=== PATIENT | female | born 1945 | race Caucasian/White ===

== ENCOUNTER 2017-04-12 18:01 | Observation (INO) | payer OTHER ==
[~2017-04-12] VITALS: Ht 157.5 cm; Wt 76.9 kg
[2017-04-12 18:26] LABS: BASO % 0.2 %; BASO ABS # 0.02 K/uL (0-0.2); COMPLETE YES; HEMATOCRIT 43.9 % (37-47); IG% 0.3 %; LYMPH % 7.7 %; LYMPH ABS # 0.89 K/uL (1.2-3.4); MEAN CELL VOLUME 96.7 fL (80-100); MEAN CORPUSCULAR HEMOGLOBIN 31.3 pg (25-34); MEAN CORPUSCULAR HGB CONC 32.3 g/dl (32-36); MEAN PLATELET VOLUME 9.5 fL (7.4-10.4); MONO % 4.2 %; NEUT % 86.6 %; PLATELET COUNT 247 K/uL (130-400); RED BLOOD COUNT 4.54 M/uL (4.2-5.4); WHITE BLOOD COUNT 11.55 K/uL (4.8-10.8)
[2017-04-12 18:40] LABS: PARTIAL THROMBOPLASTIN RATIO 1.2; PROTHROMBIN TIME (PATIENT) 10.6 SECONDS (9.0-12.0)
[2017-04-12 18:47] LABS: ALKALINE PHOSPHATASE 84 U/L (45-117); ALT/SGPT 22 U/L (12-78); AST/SGOT 17 U/L (15-37); BLOOD UREA NITROGEN 14 mg/dl (7-18); BUN/CREATININE RATIO 13.7 (10-20); CALCIUM 8.8 mg/dl (8.5-10.1); CARBON DIOXIDE 27 mmol/L (21-32); CHLORIDE 104 mmol/L (98-107); CKMB/CK RATIO 1.3 (0-3.0); CREATININE 0.99 mg/dl (0.60-1.20); GLUCOSE 157 mg/dl (70-99); MAGNESIUM 2.1 mg/dl (1.8-2.4); POTASSIUM 3.3 mmol/L (3.5-5.1); SODIUM 137 mmol/L (136-145)
--- NOTE | 2017-04-12 18:47 | DIAGNOSTIC IMAGING REPORT ---
SINGLE VIEW CHEST CLINICAL HISTORY: Weakness. Change in mental status. FINDINGS: An AP, portable, upright chest radiograph is obtained. No prior studies are available for comparison at the time of dictation. The examination is degraded by portable technique and apical lordotic positioning. The cardiomediastinal silhouette is unremarkable. There is atherosclerotic calcification of the thoracic aorta. Small calcified granulomas are incidentally noted. The lungs and pleural spaces are otherwise clear. No pneumothorax is seen. The skeletal structures are osteopenic. The bony thorax is grossly intact. IMPRESSION: No active disease in the chest. Electronically signed by: Armani Loya M.D. 04/12/2017 6:46 PM Dictated Date/Time: 04/12/2017 6:45 PM
--- NOTE | 2017-04-12 18:56 | DIAGNOSTIC IMAGING REPORT ---
CT SCAN OF THE BRAIN WITHOUT IV CONTRAST CLINICAL HISTORY: Weakness. Change in mental status. COMPARISON STUDY: MRI of the brain dated 02/15/2016. TECHNIQUE: Unenhanced axial CT scan of the brain is performed from the vertex to the skull base. CT DOSE: 700.35 mGycm FINDINGS: Brain parenchyma: There are age-related involutional changes noting mild patchy subcortical and periventricular microangiopathic change. A 2.9 cm calcified extra-axial mass in the right anterior temporal fossa is unchanged from previous and typical appearance for a meningioma. There is no significant associated mass effect. There is no hemorrhage, midline shift, or evidence of acute territorial ischemia by CT criteria. Durand-white matter is preserved. No extra-axial fluid collection is seen. Ventricles, sulci, cisterns: Prominent secondary to involutional change. Intracranial vasculature: There is atherosclerotic calcification of the cavernous carotid arteries. Calvarium: Unremarkable. Sinuses and mastoids: The visualized paranasal sinuses are clear. The mastoid air cells are well pneumatized. Orbits: The bony orbits are grossly intact. IMPRESSION: 1. There is no hemorrhage, mass effect, or evidence of acute territorial ischemia by CT criteria. 2. A calcified extra-axial mass in the right anterior temporal fossa is typical in appearance for a meningioma and unchanged from prior studies. Electronically signed by: Armani Loya M.D. 04/12/2017 6:54 PM Dictated Date/Time: 04/12/2017 6:51 PM
[2017-04-12] MEDS ORDERED: ASPIRIN 81 MG CHEW PO STA (18:58)
--- NOTE | 2017-04-12 19:23 | EMERGENCY ROOM VISIT NOTE ---
History Report prepared by Scribrigo: Coleman Jimenez Under the Supervision of: Dr. Kendell Allen D.O. First contact with patient: 18:06 Stated Complaint: RT LEG PAIN/WEAKNESS History of Present Illness The patient is a 71 year old female who presents to the Emergency Room by EMS with complaints of improving right leg weakness beginning two hours ago. The patient states that she previously had right arm weakness as well, but it has since resolved. She states that she was standing outside while gardening when her weakness began. She states that her weakness began suddenly and caused her to fall. The patient states that she eventually was able to get to a phone to call EMS after falling a few more times. She does not believe she injured herself or hit her head on any of the falls. The patient denies any headaches, loss of bowel or bladder continence, visual changes, back pain, or leg pain. She has a history of ambulatory problems related to spinal stenosis and sciatica. She has no history of stroke or heart attack. Source of History: patient Onset: Two hours ago Position: leg (right) Quality: other (weakness) Timing: other (improving) Associated Symptoms: + weakness (resolved right arm), No headache, No back pain Note: The patient denies any loss of bowel or bladder continence, leg pain or visual changes. Review of Systems See HPI for pertinent positives & negatives. A total of 10 systems reviewed and were otherwise negative. Past Medical & Surgical Medical Problems: (1) HTN (hypertension) (2) Sciatica (3) Spinal stenosis Family History No pertinent family history stated. Social History Smoking Status: Current Every Day Smoker Occupation Status: retired Allergies Coded Allergies: Penicillins (Verified Adverse Reaction, Mild, GI SYMPTOMS, 04/09/14) Physical Exam Vital Signs Date Time Temp Pulse Resp B/P (MAP) Pulse Ox O2 Delivery O2 Flow Rate FiO2 04/12/17 19:13 88 04/12/17 19:10 92 162/82 96 Room Air 04/12/17 18:14 34.2 100 176/76 96 Room Air Physical Exam VITAL SIGNS: were reviewed as above. GENERAL:Non-toxic in appearance. SKIN: Warm dry and pink. HEAD: Normocephalic and atraumatic. OROPHARYNX: Is clear and moist NECK: Supple without lymphadenopathy or meningismus. LUNGS: clear. HEART: Regular rate and rhythm. ABDOMEN: Soft and nontender. EXTREMITIES: Warm and well perfused. NEUROLOGICALLY: Awake alert and oriented without focal deficit. Cranial nerves 2 -12 are intact. There is no pronator drift. Cerebellar testing is within normal limits. There is no nystagmus. There is no facial droop. Speech is clear. Vision is grossly normal. MUSCULOSKELETAL: Good muscle tone. No evidence of trauma. Medical Decision & Procedures ER Provider Diagnostic Interpretation: Radiology results as stated below per my review and radiologist interpretation: CT SCAN OF THE BRAIN WITHOUT IV CONTRAST FINDINGS: Brain parenchyma: There are age-related involutional changes noting mild patchy subcortical and periventricular microangiopathic change. A 2.9 cm calcified extra-axial mass in the right anterior temporal fossa is unchanged from previous and typical appearance for a meningioma. There is no significant associated mass effect. There is no hemorrhage, midline shift, or evidence of acute territorial ischemia by CT criteria. Durand-white matter is preserved. No extra-axial fluid collection is seen. Ventricles, sulci, cisterns: Prominent secondary to involutional change. Intracranial vasculature: There is atherosclerotic calcification of the cavernous carotid arteries. Calvarium: Unremarkable. Sinuses and mastoids: The visualized paranasal sinuses are clear. The mastoid air cells are well pneumatized. Orbits: The bony orbits are grossly intact. IMPRESSION: 1. There is no hemorrhage, mass effect, or evidence of acute territorial ischemia by CT criteria. 2. A calcified extra-axial mass in the right anterior temporal fossa is typical in appearance for a meningioma and unchanged from prior studies. Electronically signed by: Armani Loya M.D. 04/12/2017 6:54 PM SINGLE VIEW CHEST FINDINGS: An AP, portable, upright chest radiograph is obtained. No prior studies are available for comparison at the time of dictation. The examination is degraded by portable technique and apical lordotic positioning. The cardiomediastinal silhouette is unremarkable. There is atherosclerotic calcification of the thoracic aorta. Small calcified granulomas are incidentally noted. The lungs and pleural spaces are otherwise clear. No pneumothorax is seen. The skeletal structures are osteopenic. The bony thorax is grossly intact. IMPRESSION: No active disease in the chest. Electronically signed by: Armani oLya M.D. 04/12/2017 6:46 PM Laboratory Results 04/12/17 18:00 Red Blood Count 4.54, Mean Corpuscular Volume 96.7, Mean Corpuscular Hemoglobin 31.3, Mean Corpuscular Hemoglobin Concent 32.3, Mean Platelet Volume 9.5, Neutrophils (%) (Auto) 86.6, Lymphocytes (%) (Auto) 7.7, Monocytes (%) (Auto) 4.2, Eosinophils (%) (Auto) 1.0, Basophils (%) (Auto) 0.2, Neutrophils # (Auto) 10.02, Lymphocytes # (Auto) 0.89, Monocytes # (Auto) 0.48, Eosinophils # (Auto) 0.11, Basophils # (Auto) 0.02 04/12/17 18:00 Test 04/12/17 18:00 White Blood Count 11.55 K/uL (4.8-10.8) Red Blood Count 4.54 M/uL (4.2-5.4) Hemoglobin 14.2 g/dL (12.0-16.0) Hematocrit 43.9 % (37-47) Mean Corpuscular Volume 96.7 fL (80-100) Mean Corpuscular Hemoglobin 31.3 pg (25-34) Mean Corpuscular Hemoglobin Concent 32.3 g/dl (32-36) Platelet Count 247 K/uL (130-400) Mean Platelet Volume 9.5 fL (7.4-10.4) Neutrophils (%) (Auto) 86.6 % Lymphocytes (%) (Auto) 7.7 % Monocytes (%) (Auto) 4.2 % Eosinophils (%) (Auto) 1.0 % Basophils (%) (Auto) 0.2 % Neutrophils # (Auto) 10.02 K/uL (1.4-6.5) Lymphocytes # (Auto) 0.89 K/uL (1.2-3.4) Monocytes # (Auto) 0.48 K/uL (0.11-0.59) Eosinophils # (Auto) 0.11 K/uL (0-0.5) Basophils # (Auto) 0.02 K/uL (0-0.2) RDW Standard Deviation 49.9 fL (36.4-46.3) RDW Coefficient of Variation 14.0 % (11.5-14.5) Immature Granulocyte % (Auto) 0.3 % Immature Granulocyte # (Auto) 0.03 K/uL (0.00-0.02) Prothrombin Time 10.6 SECONDS (9.0-12.0) Prothromb Time International Ratio 1.0 (0.9-1.1) Activated Partial Thromboplast Time 31.6 SECONDS (21.0-31.0) Partial Thromboplastin Ratio 1.2 Anion Gap 6.0 mmol/L (3-11) Est Creatinine Clear Calc Drug Dose 61.6 ml/min Estimated GFR () 66.9 Estimated GFR (Non- 57.7 BUN/Creatinine Ratio 13.7 (10-20) Calcium Level 8.8 mg/dl (8.5-10.1) Magnesium Level 2.1 mg/dl (1.8-2.4) Total Bilirubin 0.4 mg/dl (0.2-1) Direct Bilirubin mg/dl (0-0.2) Aspartate Amino Transf (AST/SGOT) 17 U/L (15-37) Alanine Aminotransferase (ALT/SGPT) 22 U/L (12-78) Alkaline Phosphatase 84 U/L (45-117) Total Creatine Kinase 78 U/L (26-192) Creatine Kinase MB 1.0 ng/ml (0.5-3.6) Creatine Kinase MB Ratio 1.3 (0-3.0) Troponin I < 0.015 ng/ml (0-0.045) Total Protein 7.6 gm/dl (6.4-8.2) Albumin 3.8 gm/dl (3.4-5.0) Lipase 131 U/L (73-393) Thyroid Stimulating Hormone (TSH) 2.940 uIu/ml (0.300-4.500) Chemistry Specimen Hemolysis Laboratory results as stated above per my review. Medications Administered Medications (Trade) Dose Ordered Sig/Koby Route Start Time Stop Time Status Last Admin Dose Admin Aspirin (Aspirin Chew) 324 mg NOW STAT PO 04/12/17 18:58 04/12/17 18:59 DC 04/12/17 19:10 324 MG ECG Indication: weakness Rate (beats per minute): 88 Rhythm: normal sinus Findings: no acute ischemic change, no ectopy ED Course 1809: Previous medical records were reviewed. The patient was evaluated in room C10. A complete history and physical examination was performed. 1857: Ordered Aspirin Chew 324 mg PO. 1919: On reevaluation, the patient is resting comfortably. I discussed the results and findings with her. She verbalized agreement of the treatment plan. I spoke with Dr. Briceno of the [facility] Hospitalist Service. The patient will be evaluated for further management and care. Medical Decision Differential includes acute coronary syndrome, myocardial infarction, CVA, TIA, anemia, infection, pneumonia, UTI, pyelonephritis, poor nutrition, dehydration, electrolyte disturbance, hypoglycemia. This is a 71-year-old female who presents to the ED with a chief complaint of right leg and right arm weakness. The patients symptoms started suddenly around 4 PM. She states that she was outside gardening. The patient subsequently lost strength in the leg and the right arm simultaneously. She has some difficulty getting back to the house. Her symptoms slowly improved. By the time EMS arrived, her right arm was functioning normally but her right leg was still weak. She denies any other significant symptoms. Denies any trauma. She does report having fallen a few times but denies falling hard or striking her head. She denies any back or neck pain. She denies any bowel or bladder dysfunction. Her vital signs are stable. Her physical exam did not reveal any focal deficits. She has no pronator drift. Right leg appears to be symmetric to the left with regards to strength. She does report that she feels like she might fall when she bears weight. A CT scan of the brain and chest x- ray did not show any acute disease. CBC and complete metabolic panel were unremarkable. EKG shows a normal sinus rhythm. The patient was treated with aspirin by mouth. I spoke with the hospitalist, who will see the patient for further inpatient evaluation. Medication Reconcilliation Current Medication List: was personally reviewed by me Blood Pressure Screening Patient's blood pressure: Elevated blood pressure Blood pressure disposition: Referred to PCP Consults Time Called: 1912 Consulting Physician: Dr. Briceno -[facility] Returned Call: [phone] Discussed the patient's case. The patient will be evaluated for further treatment and disposition. Impression Primary Impression: TIA (transient ischemic attack) Scribe Attestation The scribe's documentation has been prepared under my direction and personally reviewed by me in its entirety. I confirm that the note above accurately reflects all work, treatment, procedures, and medical decision making performed by me. Departure Information Dispostion Being Evaluated By Hospitalist Referrals Edelmira Sim D.O. (PCP) Stroke History Time Last Known Well 4pm Stroke t-PA Criteria Reviewed Does NOT meet criteria for t-PA Reason t-PA Not Given Treatment not indicated Strict Exclusion Criteria Complete resolution of symptoms (NI
[2017-04-12] MEDS ORDERED: ZINC25TA PO (19:28)
[2017-04-12] MEDS ORDERED: CHOL100010 PO (19:28)
[2017-04-12] MEDS ORDERED: MULT-506 PO (19:28)
[2017-04-12] MEDS ORDERED: GLUC1CAP35 PO (19:28)
[2017-04-12] MEDS ORDERED: TURM500T PO (19:28)
[2017-04-12] MEDS ORDERED: LUTE6CAP PO (19:28)
[2017-04-12] MEDS ORDERED: ACETAMINOPHEN 325 MG TAB PO PRN (19:45)
[2017-04-12] MEDS ORDERED: MAGNESIUM HYDROXIDE SUSP 30 ML UDC PO PRN (19:45)
[2017-04-12] MEDS ORDERED: ONDANSETRON INJ 2 MG/ML 2 ML VIAL IV PRN (19:45)
[2017-04-12] MEDS ORDERED: ALUMINUM/MAGNESIUM/SIMETH (MAALOX MAX) 30 ML UDC PO PRN (19:45)
[2017-04-12] MEDS ORDERED: POLYETHYLENE (MIRALAX) 17 GM PACK PO PRN (19:45)
[2017-04-12] MEDS ORDERED: PHARMACIST DISCHARGE MED REC CONSULT PRN (20:00)
--- NOTE | 2017-04-12 20:11 | History and Physical ---
History & Physical Date & Time of Service: Apr 12, 2017 at 19:22 Chief Complaint: Rt Leg Pain/Weakness Primary Care Physician: Edelmira Sim D.O. History of Present Illness Source: patient 71 y/o F Hx lumbar stenosis, tobacco use, meningioma. Pt was in her garden when her R upper and lower extremity became acutely weak causing her to lose her balance. She suffered a fall but denies any significant head or back trauma. She sat herself up and realized that her LLE remained weak and she was unable to support her weight. Her symptoms have improved on arrival to the ER, however, she continues to exhibit mild weakness, mostly in her RUE. She denies any CP, SOB, palpitations, N/V, ERVIN, visual changes or recent fevers. She follows up with regular MRIs to keep track of her meningioma which has not thus far caused any clinical issues. Past Medical/Surgical History Medical Problems: (1) HTN (hypertension) Status: Resolved (2) Sciatica Status: Resolved (3) Spinal stenosis Status: Chronic Family History Father - multiple CVAs Mother of "old age" - 103 y/o Social History Smokes a pack of cigarettes daily - drink two alcoholic beverages daily Smoking Status: Current Every Day Smoker Multi-Drug Resistant Organisms History of MDRO: No Allergies Coded Allergies: Penicillins (Verified Adverse Reaction, Mild, GI SYMPTOMS, 04/09/14) Review of Systems Constitutional: No fever, No chills, No sweats Eyes: No worsening of vision ENT: No hearing loss, No unusual epistaxis, No nasal symptoms Respiratory: No cough, No wheezing Cardiovascular: No chest pain, No orthopnea, No PND Abdomen: No pain, No nausea, No vomiting Musculoskeletal: No joint pain Genitourinary - Female: No dysuria, No hematuria Neurologic: + weakness, + balance problems, No memory loss, No paralysis Psychiatric: No depression symptoms Endocrine: No fatigue Hematologic / Lymphatic: No abnormal bleeding/bruising Integumentary: No rash Allergic / Immunologic: No environmental allergies Physical Exam Vital Signs Date Time Temp Pulse Resp B/P (MAP) Pulse Ox O2 Delivery O2 Flow Rate FiO2 04/12/17 19:13 88 04/12/17 19:10 92 162/82 96 Room Air 04/12/17 18:14 34.2 100 176/76 96 Room Air General Appearance: WD/WN, no apparent distress Head: normocephalic Eyes: normal inspection ENT: normal ENT inspection, hearing grossly normal, pharynx normal Neck: supple, no JVD Respiratory/Chest: chest non-tender, lungs clear, normal breath sounds Cardiovascular: regular rate, rhythm, no edema, no gallop, no JVD, no murmur, normal peripheral pulses Abdomen/GI: normal bowel sounds, non tender, soft Back: normal inspection, no CVA tenderness, no muscle spasm, normal range of motion Extremities/Musculoskelatal: normal inspection, no calf tenderness, normal capillary refill, no pedal edema, normal range of motion Neurologic/Psych: alert, oriented x 3, + pertinent finding (She is AAO x 3, There may be slight flattening of the R nasolabial fold, There is mild R pronator drift and mild proximal RLE weakness, there are no sensory deficits, coordiniation is intact - gait was not tested but reported impaired at present) Diagnostics Laboratory Results Results Past 24 Hours Test 04/12/17 18:00 Range/Units White Blood Count 11.55 4.8-10.8 K/uL Red Blood Count 4.54 4.2-5.4 M/uL Hemoglobin 14.2 12.0-16.0 g/dL Hematocrit 43.9 37-47 % Mean Corpuscular Volume 96.7 80-100 fL Mean Corpuscular Hemoglobin 31.3 25-34 pg Mean Corpuscular Hemoglobin Concent 32.3 32-36 g/dl Platelet Count 247 130-400 K/uL Mean Platelet Volume 9.5 7.4-10.4 fL Neutrophils (%) (Auto) 86.6 % Lymphocytes (%) (Auto) 7.7 % Monocytes (%) (Auto) 4.2 % Eosinophils (%) (Auto) 1.0 % Basophils (%) (Auto) 0.2 % Neutrophils # (Auto) 10.02 1.4-6.5 K/uL Lymphocytes # (Auto) 0.89 1.2-3.4 K/uL Monocytes # (Auto) 0.48 0.11-0.59 K/uL Eosinophils # (Auto) 0.11 0-0.5 K/uL Basophils # (Auto) 0.02 0-0.2 K/uL RDW Standard Deviation 49.9 36.4-46.3 fL RDW Coefficient of Variation 14.0 11.5-14.5 % Immature Granulocyte % (Auto) 0.3 % Immature Granulocyte # (Auto) 0.03 0.00-0.02 K/uL Prothrombin Time 10.6 9.0-12.0 SECONDS Prothromb Time International Ratio 1.0 0.9-1.1 Activated Partial Thromboplast Time 31.6 21.0-31.0 SECONDS Partial Thromboplastin Ratio 1.2 Sodium Level 137 136-145 mmol/L Potassium Level 3.3 3.5-5.1 mmol/L Chloride Level 104 98-107 mmol/L Carbon Dioxide Level 27 21-32 mmol/L Anion Gap 6.0 3-11 mmol/L Blood Urea Nitrogen 14 7-18 mg/dl Creatinine 0.99 0.60-1.20 mg/dl Est Creatinine Clear Calc Drug Dose 61.6 ml/min Estimated GFR () 66.9 Estimated GFR (Non- 57.7 BUN/Creatinine Ratio 13.7 10-20 Random Glucose 157 70-99 mg/dl Calcium Level 8.8 8.5-10.1 mg/dl Magnesium Level 2.1 1.8-2.4 mg/dl Total Bilirubin 0.4 0.2-1 mg/dl Direct Bilirubin 0-0.2 mg/dl Aspartate Amino Transf (AST/SGOT) 17 15-37 U/L Alanine Aminotransferase (ALT/SGPT) 22 12-78 U/L Alkaline Phosphatase 84 45-117 U/L Total Creatine Kinase 78 26-192 U/L Creatine Kinase MB 1.0 0.5-3.6 ng/ml Creatine Kinase MB Ratio 1.3 0-3.0 Troponin I < 0.015 0-0.045 ng/ml Total Protein 7.6 6.4-8.2 gm/dl Albumin 3.8 3.4-5.0 gm/dl Lipase 131 73-393 U/L Thyroid Stimulating Hormone (TSH) 2.940 0.300-4.500 uIu/ml Chemistry Specimen Hemolysis Diagnostic Radiology CT head 1. There is no hemorrhage, mass effect, or evidence of acute territorial ischemia by CT criteria. 2. A calcified extra-axial mass in the right anterior temporal fossa is typical in appearance for a meningioma and unchanged from prior studies. Normal EKG Impression Assessment and Plan 71 y/o F Hx lumbar stenosis, tobacco use, meningioma. Pt was in her garden when her R upper and lower extremity became acutely weak causing her to lose her balance. She suffered a fall but denies any significant head or back trauma. She sat herself up and realized that her LLE remained weak and she was unable to support her weight. Her symptoms have improved on arrival to the ER, however, she continues to exhibit mild weakness, mostly in her RUE. She denies any CP, SOB, palpitations, N/V, ERVIN, visual changes or recent fevers. She follows up with regular MRIs to keep track of her meningioma which has not thus far caused any clinical issues. 1) TIA - pt is at risk of significant CVA due to age, smoking, family Hx - her BP is elevated on admission although there is no evidence of chronicity. We have placed her on ASA and a Statin - MRI/MRA ordered - will monitor on telemetry with neurochecks - neurology is consulted. She may need short-term rehab if she is unable to improve her balance prior to DC. 2) Regarding her meningioma, it is reported as stable on imaging and considering the location it is unlikely related to the above. 3) Tobacco use - she does not have interest in cessation. 4) Lumbar stenosis - would not account for her acute symptoms or upper extrem weakness and therefore is also unlikely related. Full code - SCDs due to meningioma and fall risk Total time for this admit including review of labs, meds, imaging - discussion with pt and ER attending - 36 min Level of Care Telemetry Resuscitation Status FULL RESUSCITATION VTE Prophylaxis Given or contraindicated: SCD's
[2017-04-12] MEDS ORDERED: IV FLUIDS COMPLETED PRN (21:00)
[2017-04-12] MEDS ORDERED: ATORVASTATIN 20 MG TAB PO SCH (21:00)
[2017-04-12 22:23] VITALS: BP 154/77; PULSE 88; TEMP 37.1; O2SAT 96; Ht 157.5 cm; Wt 76.9 kg
[2017-04-13 00:29] VITALS: BP 137/69; PULSE 91; TEMP 37.1; O2SAT 93
[2017-04-13 04:23] VITALS: BP 134/66; PULSE 62; TEMP 37.1; O2SAT 95
[2017-04-13 06:15] LABS: BASO % 0.1 %; BASO ABS # 0.01 K/uL (0-0.2); COMPLETE YES; EOS % 2.8 %; HEMATOCRIT 39.4 % (37-47); IG% 0.3 %; LYMPH % 23.1 %; LYMPH ABS # 1.57 K/uL (1.2-3.4); MEAN CELL VOLUME 97.3 fL (80-100); MEAN CORPUSCULAR HEMOGLOBIN 31.4 pg (25-34); MEAN CORPUSCULAR HGB CONC 32.2 g/dl (32-36); MEAN PLATELET VOLUME 8.8 fL (7.4-10.4); MONO % 9.3 %; NEUT % 64.4 %; PLATELET COUNT 194 K/uL (130-400); RED BLOOD COUNT 4.05 M/uL (4.2-5.4); WHITE BLOOD COUNT 6.79 K/uL (4.8-10.8)
[2017-04-13 06:52] LABS: BUN/CREATININE RATIO 17.9 (10-20); CALCIUM 8.3 mg/dl (8.5-10.1); CREATININE 0.64 mg/dl (0.60-1.20); POTASSIUM 3.6 mmol/L (3.5-5.1)
[2017-04-13 06:59] LABS: CHOLESTEROL/HDL RATIO 5.7
[2017-04-13 07:01] LABS: ESTIMATED AVERAGE GLUCOSE 103 mg/dl; HA1C FLAG Normal (Normal)
[2017-04-13 07:28] VITALS: BP 146/74; PULSE 67; TEMP 37.3; O2SAT 93
--- NOTE | 2017-04-13 08:36 | Neurology Consultation ---
Neurology Consultation Date of Consultation: Apr 13, 2017. Attending Physician: Abhishek Briceno M.D. Primary Care Physician: Edelmira Sim D.O. Reason for Consultation: TIA History of Present Illness Source: patient, hospital records The patient is a 71-year-old female who presented to the emergency department yesterday complaining of acute onset right-sided weakness affecting the arm and leg that began yesterday afternoon while she was working outside in her garden. The patient was alone at the time and had significant difficulty walking back to her house due to the ongoing right-sided weakness and had several falls but denies sustaining any significant injuries. Her weakness significantly improved by the time she was evaluated in the emergency department, proximally 2 hours after symptom onset. She denies experiencing any associated headache, vision change, or speech change. This patient does have a past medical history of lumbar spinal stenosis on the basis of multilevel intervertebral degenerative disc disease, most significant at L4-5, for which she has followed with orthopedics and pain management. No history of spinal surgery. She does complain of intermittent low back pain and sciatica but nothing significant recently. History also notable for hypertension and cigarette smoking. She does not take any regular prescription medications. I did review the images as well as the radiologist's interpretation of the CT of the head completed in the emergency department. The study is negative for acute process. No hemorrhage. There is a chronic 2.9 cm calcified meningioma within the anterior aspect of the right temporal lobe. This ab normality has been followed previously by neurosurgery. The study is also notable for chronic periventricular and subcortical lucencies consistent with chronic microvascular ischemic change. Electrocardiogram reveals a normal sinus rhythm, 88 bpm. While in the emergency department, the patient was observed to have very subtle weakness of the right arm and leg by the admitting physician. She was given a full dose aspirin while in the emergency department. She has been admitted for further evaluation and management of suspected TIA. Past Medical/Surgical History Medical Problems: (1) TIA (transient ischemic attack) Status: Acute Family History Family history notable for several strokes in the father Social History Occupation Status: retired Allergies Coded Allergies: Penicillins (Verified Adverse Reaction, Mild, GI SYMPTOMS, 04/12/17) Current Inpatient Medications Current Inpatient Medications Medications (Trade) Dose Ordered Sig/Koby Route Start Time Stop Time Status Last Admin Dose Admin Atorvastatin Calcium (Lipitor Tab) 20 mg HS PO 04/12/17 21:00 05/12/17 20:59 Acetaminophen (Tylenol Tab) 650 mg Q4H PRN PO 04/12/17 19:45 05/12/17 19:44 Al Hydrox/Mg Hydrox/Simethicone (Maalox Max Susp) 15 ml Q4H PRN PO 04/12/17 19:45 05/12/17 19:44 Magnesium Hydroxide (Milk Of Magnesia Susp) 30 ml Q12H PRN PO 04/12/17 19:45 05/12/17 19:44 Ondansetron HCl (Zofran Inj) 4 mg Q6H PRN IV 04/12/17 19:45 05/12/17 19:44 Polyethylene (Miralax Powder Packet) 17 gm DAILY PRN PO 04/12/17 19:45 05/12/17 19:44 Aspirin (Ecotrin Tab) 81 mg QAM PO 04/13/17 09:00 05/13/17 08:59 04/13/17 07:34 81 MG Miscellaneous Information (Pharmacist Discharge Med Rec Consult) 1 ea UD PRN N/A 04/12/17 20:00 05/12/17 19:59 Miscellaneous (Iv Fluids Completed) 1 ea PRN PRN N/A 04/12/17 21:00 04/12/18 20:59 Review of Systems Constitutional: No fever or chills Eyes: No vision loss or diplopia ENT: No vertigo or hearing loss Cardiovascular: No chest pain or palpitations Respiratory: No coughing wheezing or shortness of breath Musculoskeletal: As per history of present illness but also significant for remote orthopedic trauma to the right upper extremity with some chronic residual limitation of mobility at the joints. Neurological: As per history of present illness A full 10 point review of systems was obtained from this patient with pertinent positives and negatives described a history of present illness and otherwise listed above. All remaining systems reviewed and are negative. Physical Exam Vital Signs (Past 24 Hrs): Date Time Temp Pulse Resp B/P (MAP) Pulse Ox O2 Delivery O2 Flow Rate FiO2 04/13/17 07:28 37.3 67 18 146/74 (98) 93 04/13/17 04:23 37.1 62 16 134/66 (88) 95 Room Air 04/13/17 04:00 Room Air 04/13/17 00:29 37.1 91 18 137/69 (91) 93 Room Air 04/13/17 00:00 Room Air 04/12/17 22:23 37.1 88 18 154/77 96 Room Air 04/12/17 21:17 78 183/78 96 04/12/17 19:13 88 04/12/17 19:10 92 162/82 96 Room Air 04/12/17 18:14 36.2 100 176/76 96 Room Air The patient is a well-developed, well-nourished, elderly female, no acute distress. She is alert and oriented to person place and time. Recent and remote memory intact. Attention and concentration normal. Patient exhibits a normal spontaneous speech pattern. She exhibits an age-appropriate fund of knowledge and normal vocabulary. Visual salcido full to confrontation. Visual acuity normal. Pupils equal round reactive to light and accommodation. Eye movements normal. Facial sensation intact. There is no facial asymmetry or facial droop. Hearing intact to finger rub bilaterally. Palate elevates to midline. Shoulder shrug strength intact bilaterally. Tongue protrudes to midline. Sensation intact to light touch, temperature, vibration, and proprioception for all 4 limbs. Deep tendon reflexes are intact and symmetrical. Plantar responses downgoing bilaterally. There is no dysdiadochokinesia or dysmetria with finger to nose or heel to crawley testing on the patient does have some mild difficulty with the right upper extremity on the basis of her chronic orthopedic limitations. Ophthalmoscopic examination reveals normal-appearing optic nerves and posterior segments. No papilledema or hemorrhages. Carotid pulses normal bilaterally, no bruits to auscultation. Gait and station not tested due to safety concerns. Patient seems normal muscle strength for the arms and legs proximally and distally. There is no hemiparesis at this time. There is no monoparesis at this time. Muscle tone and bulk normal throughout. No abnormal movements appreciated. Laboratory Results Past 24 Hours: 04/13/17 05:50 Red Blood Count 4.05, Mean Corpuscular Volume 97.3, Mean Corpuscular Hemoglobin 31.4, Mean Corpuscular Hemoglobin Concent 32.2, Mean Platelet Volume 8.8, Neutrophils (%) (Auto) 64.4, Lymphocytes (%) (Auto) 23.1, Monocytes (%) (Auto) 9.3, Eosinophils (%) (Auto) 2.8, Basophils (%) (Auto) 0.1, Neutrophils # (Auto) 4.37, Lymphocytes # (Auto) 1.57, Monocytes # (Auto) 0.63, Eosinophils # (Auto) 0.19, Basophils # (Auto) 0.01 04/13/17 05:50 Test 04/12/17 18:00 04/13/17 05:50 Prothrombin Time 10.6 SECONDS (9.0-12.0) Prothromb Time International Ratio 1.0 (0.9-1.1) Activated Partial Thromboplast Time 31.6 SECONDS (21.0-31.0) Partial Thromboplastin Ratio 1.2 Estimated Average Glucose 103 mg/dl Hemoglobin A1c 5.2 % (4.5-5.6) Magnesium Level 2.1 mg/dl (1.8-2.4) Total Bilirubin 0.4 mg/dl (0.2-1) Direct Bilirubin mg/dl (0-0.2) Aspartate Amino Transf (AST/SGOT) 17 U/L (15-37) Alanine Aminotransferase (ALT/SGPT) 22 U/L (12-78) Alkaline Phosphatase 84 U/L (45-117) Total Creatine Kinase 78 U/L (26-192) Creatine Kinase MB 1.0 ng/ml (0.5-3.6) Creatine Kinase MB Ratio 1.3 (0-3.0) Troponin I < 0.015 ng/ml (0-0.045) Total Protein 7.6 gm/dl (6.4-8.2) Albumin 3.8 gm/dl (3.4-5.0) Lipase 131 U/L (73-393) Thyroid Stimulating Hormone (TSH) 2.940 uIu/ml (0.300-4.500) Chemistry Specimen Hemolysis Hepatitis C Antibody Screen NEG (NEG) White Blood Count 6.79 K/uL (4.8-10.8) Red Blood Count 4.05 M/uL (4.2-5.4) Hemoglobin 12.7 g/dL (12.0-16.0) Hematocrit 39.4 % (37-47) Mean Corpuscular Volume 97.3 fL (80-100) Mean Corpuscular Hemoglobin 31.4 pg (25-34) Mean Corpuscular Hemoglobin Concent 32.2 g/dl (32-36) Platelet Count 194 K/uL (130-400) Mean Platelet Volume 8.8 fL (7.4-10.4) Neutrophils (%) (Auto) 64.4 % Lymphocytes (%) (Auto) 23.1 % Monocytes (%) (Auto) 9.3 % Eosinophils (%) (Auto) 2.8 % Basophils (%) (Auto) 0.1 % Neutrophils # (Auto) 4.37 K/uL (1.4-6.5) Lymphocytes # (Auto) 1.57 K/uL (1.2-3.4) Monocytes # (Auto) 0.63 K/uL (0.11-0.59) Eosinophils # (Auto) 0.19 K/uL (0-0.5) Basophils # (Auto) 0.01 K/uL (0-0.2) RDW Standard Deviation 50.4 fL (36.4-46.3) RDW Coefficient of Variation 14.0 % (11.5-14.5) Immature Granulocyte % (Auto) 0.3 % Immature Granulocyte # (Auto) 0.02 K/uL (0.00-0.02) Anion Gap 5.0 mmol/L (3-11) Est Creatinine Clear Calc Drug Dose 78.5 ml/min Estimated GFR () 104.8 Estimated GFR (Non- 90.4 BUN/Creatinine Ratio 17.9 (10-20) Calcium Level 8.3 mg/dl (8.5-10.1) Triglycerides Level 99 mg/dl (0-150) Cholesterol Level 218 mg/dl (0-200) HDL Cholesterol 38 mg/dl LDL Cholesterol, Calculated 160 mg/dl VLDL Cholesterol, Calculated 20 mg/dl Cholesterol/HDL Ratio 5.7 Impression This is a 71-year-old female who experienced an episode of right-sided weakness affecting the arm and leg beginning acutely yesterday afternoon while gardening. The symptoms resolved within 2-3 hours. She does not have any appreciable neurological deficits at this time. I suspect this patient had a transient ischemic attack localizing to the left cerebral hemisphere, probably subcortical location. Risk factors include age and cigarette smoking. This patient also has a history of chronic multilevel lumbar spinal stenosis and has experienced some associated radiculopathy, but typically worse with the left leg according to the patient. Plan I agree with obtaining an MRI of the brain to exclude a small acute infarct. Vascular imaging is also reasonable. Either a carotid ultrasound or MRA of the neck should be obtained to exclude a hemodynamically significant stenosis within either internal carotid artery. I see that an MRA of the neck has been ordered which is fine. An MRA of the head has also been ordered which can be useful to exclude an intracranial stenosis although it remains to be determined whether or not this data would impact this patient's management. Her presentation is not suggestive of intracranial hemorrhage due to aneurysmal rupture and screening for an aneurysm is probably not a priority in this patient. I agree with aspirin 81 mg per day. I discussed smoking cessation directly with the patient. She may also follow up with her primary care physician to discuss smoking cessation strategies and potential pharmacologic treatments. Continue management of patient's mild hypertension is medically appropriate. Consultations with PT/OT Please contact me if I may be of further assistance.
--- NOTE | 2017-04-13 08:37 | Medical Student: [facility] ---
Consultation Date of Consultation: Apr 13, 2017. Attending Physician: Dr. Scott Valenzuela Reason for Consultation: TIA History of Present Illness pt is a 71 yo F who presented to the ED with rided sided weakness. She was working in the garden yesterday afternoon when she noticed right leg and arm weakness. The leg weakness caused her to lose her balance. She fell a few times and made it back to the house approximately 2 hours later and called for the ambulance. Her symptoms have much improved by the time she arrived at the ED. She denied any headache or vision changes. Pt has a hx of sciatica and spinal stenosis and reports that most of the time she gets left leg issues from this, but has not had any episodes recently. She denies having similar episodes of right sided weakness. Pt found to be hypertensive and denies being on any medication for it. MRI notable for degenerative disc disease at multiple levels , with L4/L5 being the most significant. She has a hx of meningioma in the right anterior temporal lobe fossa meningioma which has been followed. CT was done which showed no signs of hemorrhage or ischemia. She denies having a hx of stroke or heart problems. Past Medical/Surgical History Medical History: HTN, sciatica, spinal stenosis Family History Father with multiple CVAs Mother had no known medical hx, of old age at 103. Social History Smoking Status: Current Every Day Smoker History of Alcohol Use: Yes (ALL KINDS) Occupation Status: retired Review of Systems Constitutional: No fever, No chills Eyes: No worsening of vision, No eye pain ENT: No hearing loss Respiratory: No cough, No wheezing, No shortness of breath Cardiac: No chest pain Musculoskeletal: + see HPI Neurologic: + see HPI Allergies Coded Allergies: Penicillins (Verified Adverse Reaction, Mild, GI SYMPTOMS, 04/12/17) Medications Current Inpatient Medications Medications (Trade) Dose Ordered Sig/Koby Route Start Time Stop Time Status Last Admin Dose Admin Atorvastatin Calcium (Lipitor Tab) 20 mg HS PO 04/12/17 21:00 05/12/17 20:59 Acetaminophen (Tylenol Tab) 650 mg Q4H PRN PO 04/12/17 19:45 05/12/17 19:44 Al Hydrox/Mg Hydrox/Simethicone (Maalox Max Susp) 15 ml Q4H PRN PO 04/12/17 19:45 05/12/17 19:44 Magnesium Hydroxide (Milk Of Magnesia Susp) 30 ml Q12H PRN PO 04/12/17 19:45 05/12/17 19:44 Ondansetron HCl (Zofran Inj) 4 mg Q6H PRN IV 04/12/17 19:45 05/12/17 19:44 Polyethylene (Miralax Powder Packet) 17 gm DAILY PRN PO 04/12/17 19:45 05/12/17 19:44 Aspirin (Ecotrin Tab) 81 mg QAM PO 04/13/17 09:00 05/13/17 08:59 04/13/17 07:34 81 MG Miscellaneous Information (Pharmacist Discharge Med Rec Consult) 1 ea UD PRN N/A 04/12/17 20:00 05/12/17 19:59 Miscellaneous (Iv Fluids Completed) 1 ea PRN PRN N/A 04/12/17 21:00 04/12/18 20:59 Physical Exam Date Time Temp Pulse Resp B/P (MAP) Pulse Ox O2 Delivery O2 Flow Rate FiO2 04/13/17 07:28 37.3 67 18 146/74 (98) 93 04/13/17 04:23 37.1 62 16 134/66 (88) 95 Room Air 04/13/17 04:00 Room Air 04/13/17 00:29 37.1 91 18 137/69 (91) 93 Room Air 04/13/17 00:00 Room Air 04/12/17 22:23 37.1 88 18 154/77 96 Room Air 04/12/17 21:17 78 183/78 96 04/12/17 19:13 88 04/12/17 19:10 92 162/82 96 Room Air 04/12/17 18:14 36.2 100 176/76 96 Room Air Eyes: bilateral eyes normal inspection, bilateral eyes PERRL, bilateral eyes EOMI ENT: normal ENT inspection, hearing grossly normal Neck: no carotid bruits Musculoskeletal: normal strength (5/5 throughout), normal tone Neurologic/Psychiatric: geriatric physical therapist II-XII nml as tested, no motor/sensory deficits Vision - visual acuity and field intact CN I - did not test II - pupillary constriction intact, visual acuity and field normal III, IV, - EOM intact, no diplopia V - facial sensation intact VII - muscles of facial expression intact VIII - hearing grossly intact IX, X - uvula midline, palate elevation intact XI - shoulder shrug intact and equal bilaterally XII - tongue movement normal Reflex +2 in biceps, brachioradialis, and patellar bilaterally Motor Strength - 5/5 in all four extremities Sensory - light touch and vibration intact in all four extremities. Coordination/Cerebellum - [id number] intact bilaterally - ELISSA intact bilaterally - finger to nose impaired on right (pt reports this is due to chronic orthopedic issues) Laboratory Results Last 24 Hours Test 04/12/17 18:00 04/13/17 05:50 White Blood Count 11.55 K/uL 6.79 K/uL Red Blood Count 4.54 M/uL 4.05 M/uL Hemoglobin 14.2 g/dL 12.7 g/dL Hematocrit 43.9 % 39.4 % Mean Corpuscular Volume 96.7 fL 97.3 fL Mean Corpuscular Hemoglobin 31.3 pg 31.4 pg Mean Corpuscular Hemoglobin Concent 32.3 g/dl 32.2 g/dl Platelet Count 247 K/uL 194 K/uL Mean Platelet Volume 9.5 fL 8.8 fL Neutrophils (%) (Auto) 86.6 % 64.4 % Lymphocytes (%) (Auto) 7.7 % 23.1 % Monocytes (%) (Auto) 4.2 % 9.3 % Eosinophils (%) (Auto) 1.0 % 2.8 % Basophils (%) (Auto) 0.2 % 0.1 % Neutrophils # (Auto) 10.02 K/uL 4.37 K/uL Lymphocytes # (Auto) 0.89 K/uL 1.57 K/uL Monocytes # (Auto) 0.48 K/uL 0.63 K/uL Eosinophils # (Auto) 0.11 K/uL 0.19 K/uL Basophils # (Auto) 0.02 K/uL 0.01 K/uL RDW Standard Deviation 49.9 fL 50.4 fL RDW Coefficient of Variation 14.0 % 14.0 % Immature Granulocyte % (Auto) 0.3 % 0.3 % Immature Granulocyte # (Auto) 0.03 K/uL 0.02 K/uL Prothrombin Time 10.6 SECONDS Prothromb Time International Ratio 1.0 Activated Partial Thromboplast Time 31.6 SECONDS Partial Thromboplastin Ratio 1.2 Sodium Level 137 mmol/L 139 mmol/L Potassium Level 3.3 mmol/L 3.6 mmol/L Chloride Level 104 mmol/L 109 mmol/L Carbon Dioxide Level 27 mmol/L 25 mmol/L Anion Gap 6.0 mmol/L 5.0 mmol/L Blood Urea Nitrogen 14 mg/dl 12 mg/dl Creatinine 0.99 mg/dl 0.64 mg/dl Est Creatinine Clear Calc Drug Dose 61.6 ml/min 78.5 ml/min Estimated GFR () 66.9 104.8 Estimated GFR (Non- 57.7 90.4 BUN/Creatinine Ratio 13.7 17.9 Random Glucose 157 mg/dl 101 mg/dl Estimated Average Glucose 103 mg/dl Hemoglobin A1c 5.2 % Calcium Level 8.8 mg/dl 8.3 mg/dl Magnesium Level 2.1 mg/dl Total Bilirubin 0.4 mg/dl Direct Bilirubin mg/dl Aspartate Amino Transf (AST/SGOT) 17 U/L Alanine Aminotransferase (ALT/SGPT) 22 U/L Alkaline Phosphatase 84 U/L Total Creatine Kinase 78 U/L Creatine Kinase MB 1.0 ng/ml Creatine Kinase MB Ratio 1.3 Troponin I < 0.015 ng/ml Total Protein 7.6 gm/dl Albumin 3.8 gm/dl Lipase 131 U/L Thyroid Stimulating Hormone (TSH) 2.940 uIu/ml Chemistry Specimen Hemolysis Hepatitis C Antibody Screen NEG Triglycerides Level 99 mg/dl Cholesterol Level 218 mg/dl HDL Cholesterol 38 mg/dl LDL Cholesterol, Calculated 160 mg/dl VLDL Cholesterol, Calculated 20 mg/dl Cholesterol/HDL Ratio 5.7 Assessment & Plan this is a 71 yo F who presents with transient right sided weakness. Hx notable for smoking, , HTN, and meningioma. PE findings notable for difficulty with FTN but likely due to orthopedic issue. CT did not show hemorrhage or ischemia. DDx - TIA (most likely, due to transient nature of symptoms) - Ischemic/hemorrhagic stroke (less likely due to negative findings on imaging and symptoms lasting less than 24 hrs) - Intracranial mass (less likely due to negative findings on imaging, and location of meningioma not consistent with pt's presentation) Management - ASA 81mg daily to reduce risk of recurrence - MRA of head and neck for w/u of source of episode - RF modification (triglyceride, smoking) - medical management of HTN - PT/OT consultation
[2017-04-13] MEDS ORDERED: ASPIRIN 81 MG ECTAB PO SCH (09:00)
[2017-04-13 11:26] VITALS: BP 162/82; PULSE 66; TEMP 37.2; O2SAT 94
--- NOTE | 2017-04-13 13:26 | DIAGNOSTIC IMAGING REPORT ---
MR ANGIOGRAM OF THE BRAIN CLINICAL HISTORY: Weakness. Change in mental status. COMPARISON STUDY: MRI of the brain performed concurrently on 04/13/2017. TECHNIQUE: 3-D [id number] MR angiography of the intracranial circulation is performed. 3-D tumble views are created and assessed. IV contrast was not administered for this examination. FINDINGS: The [place] is development likely complete. The internal carotid arteries are widely patent bilaterally, as are the anterior and middle cerebral arteries. The vertebrobasilar system is diminutive. The vessels are patent. The posterior cerebral arteries are patent, and largely supplied via large posterior communicating arteries. The vertebral arteries are codominant. There is no aneurysm, high-grade stenosis, or focal vessel cutoff seen throughout the intracranial circulation. The brain parenchyma is normal as visualized. IMPRESSION: Unremarkable MR angiogram of the brain. Electronically signed by: Armani Loya M.D. 04/13/2017 1:24 PM Dictated Date/Time: 04/13/2017 1:07 PM
--- NOTE | 2017-04-13 13:29 | DIAGNOSTIC IMAGING REPORT ---
Brain MRI WITH AND WITHOUT CONTRAST HISTORY: Right-sided weakness and numbness. TECHNIQUE: Multiplanar multisequence MRI of the brain was performed both before and after the intravenous administration of contrast. COMPARISON STUDY: Head CT 04/12/2017. Brain MRI 02/15/2016. FINDINGS: There is a 9 mm focus of restricted diffusion seen within the left frontal parietal periventricular location. This is consistent with a small acute infarct. Incidental note is made of a partially empty sella. The remaining midline structures are intact. Mild atrophy and microvascular ischemic changes are again noted. Small retention cyst within the floor of the right maxillary sinus. Normal orbits. The mastoid air cells are clear. The major vascular flow-voids at the skull base are well-maintained. There is again noted a 2.7 x 2.0 x 2.3 cm enhancing extra-axial mass within the right middle cranial fossa. There is also a stable 5 mm extra-axial enhancing mass within the left middle cranial fossa. These are consistent with meningiomas. IMPRESSION: 1. A 9 mm acute infarct within the left frontal/parietal periventricular location. 2. Stable bilateral middle cranial fossa meningiomas. Electronically signed by: Kaleb Krause M.D. 04/13/2017 1:28 PM Dictated Date/Time: 04/13/2017 1:21 PM
--- NOTE | 2017-04-13 13:47 | DIAGNOSTIC IMAGING REPORT ---
MRA NECK COMBO CLINICAL HISTORY: 71 years-old Female with Stroke. Acute strokelike symptoms with weakness and numbness on the right. Acute infarction of the left frontoparietal periventricular distribution. COMPARISON STUDY: Brain MRI of same day. TECHNIQUE: Axial 3-D [id number] MR angiography of the neck is performed. Subsequently, following the IV administration of 10.5 cc of Gadavist coronal MR angiogram of the neck was performed to corroborate the findings. 3-D reformats are created and assessed. All measurements were calculated based on NASCET criteria. FINDINGS: There is a focal mixed signal lesion measuring 2.5 x 2.3 x 2.9 cm within the left lateral neck adjacent to the left carotid bulb as seen on image 43 of series 12 and image 32 of series 1302 which appears to demonstrate peripheral thick nodular enhancement. Bilateral common and internal carotid arteries appear widely patent. The vertebral arteries are codominant and appear patent. There is no high-grade stenosis, proximal branch occlusion or aneurysm identified. IMPRESSION: 1. No high-grade stenosis, aneurysm or proximal branch occlusion. 2. Heterogeneous 2.9 cm lesion of the left lateral neck adjacent to the left carotid bulb with thick nodular peripheral enhancement is nonspecific. A necrotic lymph node among other etiologies are differential considerations. Further evaluation with contrast-enhanced CT of the neck recommended. The above report was generated using voice recognition software. It may contain grammatical, syntax or spelling errors. Electronically signed by: Nader Eastman M.D. 04/13/2017 1:46 PM Dictated Date/Time: 04/13/2017 1:38 PM
[2017-04-13 14:28] VITALS: BP 144/77; PULSE 72; TEMP 36.9; O2SAT 93
[2017-04-13] MEDS ORDERED: OPTIRAY 320 IV PRN (14:45)
--- NOTE | 2017-04-13 16:45 | DIAGNOSTIC IMAGING REPORT ---
SOFT TISSUE NECK WITH CLINICAL HISTORY: 71 years-old Female presenting with left neck lymphadenopathy seen on MRI. TECHNIQUE: Multidetector CT of the neck was performed after the administration of intravenous contrast. IV contrast: 95 mL of Optiray 320. A dose lowering technique was used consistent with the principles of ALARA (as low as reasonably achievable). COMPARISON: MRA neck performed earlier the same day. CT DOSE (mGy.cm): The estimated cumulative dose is 487.49 mGy.cm. FINDINGS: Corporate Relations Director topogram: Unremarkable. In the left poststyloid parapharyngeal space, a heterogeneously hyperenhancing mass splays the left internal and external carotid artery and is medial to the left internal jugular vein. This insinuates medially slightly posterior to the oropharynx and displaces the paratracheal fat anteriorly. The left parotid gland is severely atrophic and not identifiable. Right parotid gland and submandibular glands normal. Normal thyroid. No lymphadenopathy. Patent vasculature. Atherosclerosis of aortic arch. Paranasal sinuses and mastoid air cells clear. Lucent lesion in the right maxilla immediately posterior to the third right maxillary molar may represent a periapical cyst or keratocystic odontogenic tumor/odontogenic keratocyst. Mild degenerative change of the visualized portion of the cervical spine. Orbits normal. Visualized portion of the lungs clear. Multiple small nodules noted in the trachea which spare the posterior membrane. These do not appear calcified. IMPRESSION: 1. Hypervascular mass in the left poststyloid peripharyngeal space splaying the left carotid bifurcation. 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 Differential considerations include schwannoma or neurofibroma, which are considered less likely. 2. Lucent lesion in the right maxilla associated with the posterior aspect of the third right maxillary molar may represent a periapical cyst or keratocystic odontogenic tumor/odontogenic keratocyst. 3. Multiple small nodules noted along the trachea sparing the posterior membrane. Direct visualization could be considered. Differential considerations include adherent debris, papillomatosis, relapsing polychondritis, or tracheobronchopathia osteochondroplastica. Electronically signed by: Vinnie Pacheco M.D. 04/13/2017 4:44 PM Dictated Date/Time: 04/13/2017 4:29 PM
[2017-04-13] MEDS ORDERED: ASPEC81 PO (17:18)
[2017-04-13] MEDS ORDERED: LPT40 PO (17:18)
[2017-04-13 17:28] VITALS: BP 144/77; PULSE 72; TEMP 36.9; O2SAT 93
--- NOTE | 2017-04-13 17:28 | Discharge Instructions ---
Discharge Instructions Date of Service Apr 13, 2017. Admission Reason for Admission: TIA Discharge Discharge Diagnosis / Problem: Acute CVA Discharge Goals Goal(s): Improve disease control, Diagnostic testing, Therapeutic intervention Activity Recommendations Activity Limitations: resume your previous activity Lifting Limitations: none Exercise/Sports Limitations: gradually increase as tolerated Shower/Bathe: no limitations Driving or Machine Use: no driving until after seen by your PCP . Instructions / Follow-Up Instructions / Follow-Up You were admitted with right sided weakness and found to have a stroke in the brain. It is crucial that you take a baby aspirin once daily, a cholesterol- lowering pill called atorvastatin daily, and QUIT SMOKING. Fortunately, your stroke was small and you do not have any residual weakness in the right side of your body. Your stroke was most likely caused by your history of smoking, your high cholesterol, and your elevated blood pressure. You should follow up with your PCP within 1 week of discharge. You were recommended to have an Echocardiogram ( ultrasound of the heart) during your admission, but declined to stay to have it performed. Your PCP can order this for you as an outpatient. Incidentally noted on your MRI and then subsequently on a CT scan of the neck showed a mass on your left carotid artery. This is most likely not a cancerous mass, but should be evaluated by a Vascular Surgeon as well as a Head and Neck Surgeon who specializes in carotid body tumors. Furthermore, you had some small growths on the inside of your trachea (windpipe) that should be evaluated by a Cyber Systems Engineer. And lastly, you had a cystic growth of the right upper 3rd molar that should be evaluated by an Oral Surgeon. All of the referrals for these specialists will be given to you in your discharge instructions. Risk Factors for Stroke: You can reduce your chances of stroke by working with your medical provider to adopt a healthy lifestyle. Some specific ways to lower your chance of stroke are: * If you are a smoker, now is the time to stop smoking cigarettes * If you are diabetic, improve the control of your blood sugars * Avoid excessive amounts of alcohol * Control high blood pressure * Lose weight if you are overweight * Be sure to lead an active lifestyle * Eat a healthy diet low in salt, cholesterol and fat You should know about other risk factors for stroke that you are unable to control. These include: * Age 55 years or older * Male gender * Certain racial groups: , or / * Family History of Stroke, Mini stroke or Heart Attack * Sickle Cell Disease Follow Up: It is important for you to keep your follow up appointments with your medical provider. Current Hospital Diet Patient's current hospital diet: AHA Diet (Heart Healthy) Discharge Diet Recommended Diet: AHA Diet (Heart Healthy) Procedures Procedures Performed: CT Head Chest xray MRI Brain MRA Head and Neck CT Neck Pending Studies Studies pending at discharge: no Laboratory Results Last 24 Hours Test 04/12/17 18:00 04/13/17 05:50 White Blood Count 11.55 K/uL 6.79 K/uL Red Blood Count 4.54 M/uL 4.05 M/uL Hemoglobin 14.2 g/dL 12.7 g/dL Hematocrit 43.9 % 39.4 % Mean Corpuscular Volume 96.7 fL 97.3 fL Mean Corpuscular Hemoglobin 31.3 pg 31.4 pg Mean Corpuscular Hemoglobin Concent 32.3 g/dl 32.2 g/dl Platelet Count 247 K/uL 194 K/uL Mean Platelet Volume 9.5 fL 8.8 fL Neutrophils (%) (Auto) 86.6 % 64.4 % Lymphocytes (%) (Auto) 7.7 % 23.1 % Monocytes (%) (Auto) 4.2 % 9.3 % Eosinophils (%) (Auto) 1.0 % 2.8 % Basophils (%) (Auto) 0.2 % 0.1 % Neutrophils # (Auto) 10.02 K/uL 4.37 K/uL Lymphocytes # (Auto) 0.89 K/uL 1.57 K/uL Monocytes # (Auto) 0.48 K/uL 0.63 K/uL Eosinophils # (Auto) 0.11 K/uL 0.19 K/uL Basophils # (Auto) 0.02 K/uL 0.01 K/uL RDW Standard Deviation 49.9 fL 50.4 fL RDW Coefficient of Variation 14.0 % 14.0 % Immature Granulocyte % (Auto) 0.3 % 0.3 % Immature Granulocyte # (Auto) 0.03 K/uL 0.02 K/uL Prothrombin Time 10.6 SECONDS Prothromb Time International Ratio 1.0 Activated Partial Thromboplast Time 31.6 SECONDS Partial Thromboplastin Ratio 1.2 Sodium Level 137 mmol/L 139 mmol/L Potassium Level 3.3 mmol/L 3.6 mmol/L Chloride Level 104 mmol/L 109 mmol/L Carbon Dioxide Level 27 mmol/L 25 mmol/L Anion Gap 6.0 mmol/L 5.0 mmol/L Blood Urea Nitrogen 14 mg/dl 12 mg/dl Creatinine 0.99 mg/dl 0.64 mg/dl Est Creatinine Clear Calc Drug Dose 61.6 ml/min 78.5 ml/min Estimated GFR () 66.9 104.8 Estimated GFR (Non- 57.7 90.4 BUN/Creatinine Ratio 13.7 17.9 Random Glucose 157 mg/dl 101 mg/dl Estimated Average Glucose 103 mg/dl Hemoglobin A1c 5.2 % Calcium Level 8.8 mg/dl 8.3 mg/dl Magnesium Level 2.1 mg/dl Total Bilirubin 0.4 mg/dl Direct Bilirubin mg/dl Aspartate Amino Transf (AST/SGOT) 17 U/L Alanine Aminotransferase (ALT/SGPT) 22 U/L Alkaline Phosphatase 84 U/L Total Creatine Kinase 78 U/L Creatine Kinase MB 1.0 ng/ml Creatine Kinase MB Ratio 1.3 Troponin I < 0.015 ng/ml Total Protein 7.6 gm/dl Albumin 3.8 gm/dl Lipase 131 U/L Thyroid Stimulating Hormone (TSH) 2.940 uIu/ml Chemistry Specimen Hemolysis Hepatitis C Antibody Screen NEG Triglycerides Level 99 mg/dl Cholesterol Level 218 mg/dl HDL Cholesterol 38 mg/dl LDL Cholesterol, Calculated 160 mg/dl VLDL Cholesterol, Calculated 20 mg/dl Cholesterol/HDL Ratio 5.7 Hemoglobin A1c Test 04/12/17 18:00 Range/Units Estimated Average Glucose 103 mg/dl Hemoglobin A1c 5.2 4.5-5.6 % Lipid Panel Test 04/13/17 05:50 Range/Units Triglycerides Level 99 0-150 mg/dl Cholesterol Level 218 H 0-200 mg/dl HDL Cholesterol 38 mg/dl Cholesterol/HDL Ratio 5.7 LDL Cholesterol, Calculated 160 mg/dl Medical Emergencies . Who to Call and When: Medical Emergencies: Call 911 immediately if you experience any of the following warning signs and symptoms of Stroke: * Sudden numbness or weakness of the face, arm or leg, especially on one side of the body * Sudden confusion, trouble speaking or understanding * Sudden trouble seeing in one or both eyes * Sudden trouble walking, dizziness, loss of balance or coordination * Sudden severe headache with no cause Do not delay calling 911 if you experience any warning signs or symptoms of a stroke. Delay in seeking medical attention may affect what treatments can be given to you. . Non-Emergent Contact Non-Emergency issues call your: Primary Care Provider . . "Provider Documentation" section prepared by Zaria Morton. . Stroke Core Measures Reason no t-PA for Stroke: Treatment not indicated Reason no antithrom by day 2: Treatment provided - N/A Reason no antithrom at D/C: Treatment provided - N/A Reason no statin at D/C: Treatment provided - N/A Reason no anticoag w/a fib: Treatment not indicated VTE Core Measure Inpt VTE Proph given/why not?: SCD's, Contraindicated (due to meningioma and fall risk)
--- NOTE | 2017-04-13 17:41 | Medical Student: [facility] ---
Med Student History & Physical Date & Time of Service: Apr 13, 2017 at 17:22 Chief Complaint: TIA Primary Care Physician: Edelmira Sim D.O. History of Present Illness Source: patient Lula is a 71 yo female with history of HTN and otherwise relatively benign medical history who presented yesterday for weakness of upper and lower extremity that lasted about 2-3 hours before improvement with complete improvement this morning. She experienced multiple falls as she was trying to get back in her house, no head injuries. She denies numbness of extremities, head ache, vision change, facial changes, incontinence, retention, neck stiffness, chest pain, palpitations, shortness of breath. Has not had this happen before. Is not on HTN medication or aspirin. Is a current smoker. Has history of meningioma that has been stable for 17 years. Past Medical/Surgical History Medical Problems: (1) TIA (transient ischemic attack) Status: Acute Family History Father: stroke Mother: cancer (colon) Other: cancer (Maternal aunt- Colon cancer) Social History Smoking Status: Current Every Day Smoker (1 ppd) Alcohol Use: occasionally (1-2 a day) Drug Use: none Occupational Status: retired Allergies Coded Allergies: Penicillins (Verified Adverse Reaction, Mild, GI SYMPTOMS, 04/12/17) Medications Aspirin (Aspirin EC Low Dose), 81 MG PO QAM Atorvastatin (Atorvastatin Calcium), 40 MG PO DAILY Cholecalciferol (Vitamin D), 1 CAP PO DAILY Ydkwmasocba-Lgxrteqnyrb-Geb C- (Glucosamine Chondroitin), 1 CAP PO DAILY Lutein (Lutein), 1 CAP PO DAILY Multivitamin (Multivitamin), 1 TAB PO DAILY Turmeric (Curcuma Longa) (Turmeric), 1,000 MG PO DAILY Zinc (Zinc), 1 TAB PO DAILY Review of Systems Constitutional: + weakness, No fever, No chills, No sweats, No weight loss, No fatigue Eyes: No worsening of vision, No eye pain, No redness, No diplopia, No problem reported ENT: No hearing loss, No unusual epistaxis, No nasal symptoms, No sore throat, No tinnitus, No trouble swallowing, No problem reported Respiratory: No cough, No sputum, No wheezing, No shortness of breath, No dyspnea on exertion, No dyspnea at rest, No hemoptysis, No problem reported Cardiovascular: No chest pain, No orthopnea, No edema, No claudication, No palpitations, No problem reported Abdomen: + nausea (nausea during initial episode), No pain, No vomiting, No diarrhea, No constipation, No GI bleeding Musculoskeletal: No joint pain, No muscle pain, No swelling, No calf pain, No problem reported Genitourinary - Female: No dysuria, No urinary frequency, No urinary urgency, No urinary incontinence, No urinary retention, No problem reported Neurologic: + paralysis, + weakness, + balance problems (had difficulty balancing when sitting up during episode), No memory loss, No numbness/tingling , No vertigo Psychiatric: No anxiety Hematologic / Lymphatic: No abnormal bleeding/bruising, No swollen lymph nodes , No night sweats, No problem reported Integumentary: No rash, No new/changing skin lesions, No bleeding Allergic / Immunologic: No poor healing, No problem reported Physical Exam Vital Signs (24 Hours) Date Time Temp Pulse Resp B/P (MAP) Pulse Ox O2 Delivery O2 Flow Rate FiO2 04/13/17 16:00 Room Air 04/13/17 14:28 36.9 72 17 144/77 (99) 93 04/13/17 12:00 Room Air 04/13/17 11:26 37.2 66 76 162/82 (108) 94 04/13/17 08:00 Room Air 04/13/17 07:28 37.3 67 18 146/74 (98) 93 04/13/17 04:23 37.1 62 16 134/66 (88) 95 Room Air 04/13/17 04:00 Room Air 04/13/17 00:29 37.1 91 18 137/69 (91) 93 Room Air 04/13/17 00:00 Room Air 04/12/17 22:23 37.1 88 18 154/77 96 Room Air 04/12/17 21:17 78 183/78 96 04/12/17 19:13 88 04/12/17 19:10 92 162/82 96 Room Air 04/12/17 18:14 36.2 100 176/76 96 Room Air General Appearance: WD/WN, no apparent distress Head: normocephalic, atraumatic Eyes: normal inspection, PERRL, EOMI, sclerae normal ENT: normal ENT inspection, hearing grossly normal, pharynx normal Neck: supple, no JVD, no carotid bruits, trachea midline Respiratory/Chest: chest non-tender, lungs clear, normal breath sounds, no respiratory distress, no accessory muscle use Cardiovascular: regular rate, rhythm, no edema, no gallop, no JVD, no murmur, normal peripheral pulses Extremities/Musculoskelatal: normal inspection, no calf tenderness, normal capillary refill, no pedal edema, non-tender Neurologic/Psych: network director II-XII nml as tested, no motor/sensory deficits, alert, normal mood/affect, normal reflexes Skin: normal color, warm/dry, no rash Diagnostics Laboratory Results Results Past 24 Hours Test 04/12/17 18:00 04/13/17 05:50 Range/Units White Blood Count 11.55 6.79 4.8-10.8 K/uL Red Blood Count 4.54 4.05 4.2-5.4 M/uL Hemoglobin 14.2 12.7 12.0-16.0 g/dL Hematocrit 43.9 39.4 37-47 % Mean Corpuscular Volume 96.7 97.3 80-100 fL Mean Corpuscular Hemoglobin 31.3 31.4 25-34 pg Mean Corpuscular Hemoglobin Concent 32.3 32.2 32-36 g/dl Platelet Count 247 194 130-400 K/uL Mean Platelet Volume 9.5 8.8 7.4-10.4 fL Neutrophils (%) (Auto) 86.6 64.4 % Lymphocytes (%) (Auto) 7.7 23.1 % Monocytes (%) (Auto) 4.2 9.3 % Eosinophils (%) (Auto) 1.0 2.8 % Basophils (%) (Auto) 0.2 0.1 % Neutrophils # (Auto) 10.02 4.37 1.4-6.5 K/uL Lymphocytes # (Auto) 0.89 1.57 1.2-3.4 K/uL Monocytes # (Auto) 0.48 0.63 0.11-0.59 K/uL Eosinophils # (Auto) 0.11 0.19 0-0.5 K/uL Basophils # (Auto) 0.02 0.01 0-0.2 K/uL RDW Standard Deviation 49.9 50.4 36.4-46.3 fL RDW Coefficient of Variation 14.0 14.0 11.5-14.5 % Immature Granulocyte % (Auto) 0.3 0.3 % Immature Granulocyte # (Auto) 0.03 0.02 0.00-0.02 K/uL Prothrombin Time 10.6 9.0-12.0 SECONDS Prothromb Time International Ratio 1.0 0.9-1.1 Activated Partial Thromboplast Time 31.6 21.0-31.0 SECONDS Partial Thromboplastin Ratio 1.2 Sodium Level 137 139 136-145 mmol/L Potassium Level 3.3 3.6 3.5-5.1 mmol/L Chloride Level 104 109 98-107 mmol/L Carbon Dioxide Level 27 25 21-32 mmol/L Anion Gap 6.0 5.0 3-11 mmol/L Blood Urea Nitrogen 14 12 7-18 mg/dl Creatinine 0.99 0.64 0.60-1.20 mg/dl Est Creatinine Clear Calc Drug Dose 61.6 78.5 ml/min Estimated GFR () 66.9 104.8 Estimated GFR (Non- 57.7 90.4 BUN/Creatinine Ratio 13.7 17.9 10-20 Random Glucose 157 101 70-99 mg/dl Estimated Average Glucose 103 mg/dl Hemoglobin A1c 5.2 4.5-5.6 % Calcium Level 8.8 8.3 8.5-10.1 mg/dl Magnesium Level 2.1 1.8-2.4 mg/dl Total Bilirubin 0.4 0.2-1 mg/dl Direct Bilirubin 0-0.2 mg/dl Aspartate Amino Transf (AST/SGOT) 17 15-37 U/L Alanine Aminotransferase (ALT/SGPT) 22 12-78 U/L Alkaline Phosphatase 84 45-117 U/L Total Creatine Kinase 78 26-192 U/L Creatine Kinase MB 1.0 0.5-3.6 ng/ml Creatine Kinase MB Ratio 1.3 0-3.0 Troponin I < 0.015 0-0.045 ng/ml Total Protein 7.6 6.4-8.2 gm/dl Albumin 3.8 3.4-5.0 gm/dl Lipase 131 73-393 U/L Thyroid Stimulating Hormone (TSH) 2.940 0.300-4.500 uIu/ml Chemistry Specimen Hemolysis Hepatitis C Antibody Screen NEG NEG Triglycerides Level 99 0-150 mg/dl Cholesterol Level 218 0-200 mg/dl HDL Cholesterol 38 mg/dl LDL Cholesterol, Calculated 160 mg/dl VLDL Cholesterol, Calculated 20 mg/dl Cholesterol/HDL Ratio 5.[address] SCAN OF THE BRAIN WITHOUT IV CONTRAST CLINICAL HISTORY: Weakness. Change in mental status. COMPARISON STUDY: MRI of the brain dated 02/15/2016. TECHNIQUE: Unenhanced axial CT scan of the brain is performed from the vertex to the skull base. CT DOSE: 700.35 mGycm FINDINGS: Brain parenchyma: There are age-related involutional changes noting mild patchy subcortical and periventricular microangiopathic change. A 2.9 cm calcified extra-axial mass in the right anterior temporal fossa is unchanged from previous and typical appearance for a meningioma. There is no significant associated mass effect. There is no hemorrhage, midline shift, or evidence of acute territorial ischemia by CT criteria. Durand-white matter is preserved. No extra-axial fluid collection is seen. Ventricles, sulci, cisterns: Prominent secondary to involutional change. Intracranial vasculature: There is atherosclerotic calcification of the cavernous carotid arteries. Calvarium: Unremarkable. Sinuses and mastoids: The visualized paranasal sinuses are clear. The mastoid air cells are well pneumatized. Orbits: The bony orbits are grossly intact. IMPRESSION: 1. There is no hemorrhage, mass effect, or evidence of acute territorial ischemia by CT criteria. 2. A calcified extra-axial mass in the right anterior temporal fossa is typical in appearance for a meningioma and unchanged from prior studies. Electronically signed by: Armani Loya M.D. 04/12/2017 6:54 PM SINGLE VIEW CHEST CLINICAL HISTORY: Weakness. Change in mental status. FINDINGS: An AP, portable, upright chest radiograph is obtained. No prior studies are available for comparison at the time of dictation. The examination is degraded by portable technique and apical lordotic positioning. The cardiomediastinal silhouette is unremarkable. There is atherosclerotic calcification of the thoracic aorta. Small calcified granulomas are incidentally noted. The lungs and pleural spaces are otherwise clear. No pneumothorax is seen. The skeletal structures are osteopenic. The bony thorax is grossly intact. IMPRESSION: No active disease in the chest. Electronically signed by: Armani Loya M.D. 04/12/2017 6:46 PM Brain MRI WITH AND WITHOUT CONTRAST HISTORY: Right-sided weakness and numbness. TECHNIQUE: Multiplanar multisequence MRI of the brain was performed both before and after the intravenous administration of contrast. COMPARISON STUDY: Head CT 04/12/2017. Brain MRI 02/15/2016. FINDINGS: There is a 9 mm focus of restricted diffusion seen within the left frontal parietal periventricular location. This is consistent with a small acute infarct. Incidental note is made of a partially empty sella. The remaining midline structures are intact. Mild atrophy and microvascular ischemic changes are again noted. Small retention cyst within the floor of the right maxillary sinus. Normal orbits. The mastoid air cells are clear. The major vascular flow-voids at the skull base are well-maintained. There is again noted a 2.7 x 2.0 x 2.3 cm enhancing extra-axial mass within the right middle cranial fossa. There is also a stable 5 mm extra-axial enhancing mass within the left middle cranial fossa. These are consistent with meningiomas. IMPRESSION: 1. A 9 mm acute infarct within the left frontal/parietal periventricular location. 2. Stable bilateral middle cranial fossa meningiomas. Electronically signed by: Kaleb Krause M.D. 04/13/2017 1:28 PM MRA NECK COMBO CLINICAL HISTORY: 71 years-old Female with Stroke. Acute strokelike symptoms with weakness and numbness on the right. Acute infarction of the left frontoparietal periventricular distribution. COMPARISON STUDY: Brain MRI of same day. TECHNIQUE: Axial 3-D [id number] MR angiography of the neck is performed. Subsequently, following the IV administration of 10.5 cc of Gadavist coronal MR angiogram of the neck was performed to corroborate the findings. 3-D reformats are created and assessed. All measurements were calculated based on NASCET criteria. FINDINGS: There is a focal mixed signal lesion measuring 2.5 x 2.3 x 2.9 cm within the left lateral neck adjacent to the left carotid bulb as seen on image 43 of series 12 and image 32 of series 1302 which appears to demonstrate peripheral thick nodular enhancement. Bilateral common and internal carotid arteries appear widely patent. The vertebral arteries are codominant and appear patent. There is no high-grade stenosis, proximal branch occlusion or aneurysm identified. IMPRESSION: 1. No high-grade stenosis, aneurysm or proximal branch occlusion. 2. Heterogeneous 2.9 cm lesion of the left lateral neck adjacent to the left carotid bulb with thick nodular peripheral enhancement is nonspecific. A necrotic lymph node among other etiologies are differential considerations. Further evaluation with contrast-enhanced CT of the neck recommended. The above report was generated using voice recognition software. It may contain grammatical, syntax or spelling errors. Electronically signed by: Nader Eastman M.D. 04/13/2017 1:46 PM MR ANGIOGRAM OF THE BRAIN CLINICAL HISTORY: Weakness. Change in mental status. COMPARISON STUDY: MRI of the brain performed concurrently on 04/13/2017. TECHNIQUE: 3-D [id number] MR angiography of the intracranial circulation is performed. 3-D tumble views are created and assessed. IV contrast was not administered for this examination. FINDINGS: The sycuan of Gayle is development likely complete. The internal carotid arteries are widely patent bilaterally, as are the anterior and middle cerebral arteries. The vertebrobasilar system is diminutive. The vessels are patent. The posterior cerebral arteries are patent, and largely supplied via large posterior communicating arteries. The vertebral arteries are codominant. There is no aneurysm, high-grade stenosis, or focal vessel cutoff seen throughout the intracranial circulation. The brain parenchyma is normal as visualized. IMPRESSION: Unremarkable MR angiogram of the brain. Electronically signed by: Armani Loya M.D. 04/13/2017 1:24 PM SOFT TISSUE NECK WITH CLINICAL HISTORY: 71 years-old Female presenting with left neck lymphadenopathy seen on MRI. TECHNIQUE: Multidetector CT of the neck was performed after the administration of intravenous contrast. IV contrast: 95 mL of Optiray 320. A dose lowering technique was used consistent with the principles of ALARA (as low as reasonably achievable). COMPARISON: MRA neck performed earlier the same day. CT DOSE (mGy.cm): The estimated cumulative dose is 487.49 mGy.cm. FINDINGS: Glue Clamp Operator topogram: Unremarkable. In the left poststyloid parapharyngeal space, a heterogeneously hyperenhancing mass splays the left internal and external carotid artery and is medial to the left internal jugular vein. This insinuates medially slightly posterior to the oropharynx and displaces the paratracheal fat anteriorly. The left parotid gland is severely atrophic and not identifiable. Right parotid gland and submandibular glands normal. Normal thyroid. No lymphadenopathy. Patent vasculature. Atherosclerosis of aortic arch. Paranasal sinuses and mastoid air cells clear. Lucent lesion in the right maxilla immediately posterior to the third right maxillary molar may represent a periapical cyst or keratocystic odontogenic tumor/odontogenic keratocyst. Mild degenerative change of the visualized portion of the cervical spine. Orbits normal. Visualized portion of the lungs clear. Multiple small nodules noted in the trachea which spare the posterior membrane. These do not appear calcified. IMPRESSION: 1. Hypervascular mass in the left poststyloid peripharyngeal space splaying the left carotid bifurcation. 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 Differential considerations include schwannoma or neurofibroma, which are considered less likely. 2. Lucent lesion in the right maxilla associated with the posterior aspect of the third right maxillary molar may represent a periapical cyst or keratocystic odontogenic tumor/odontogenic keratocyst. 3. Multiple small nodules noted along the trachea sparing the posterior membrane. Direct visualization could be considered. Differential considerations include adherent debris, papillomatosis, relapsing polychondritis, or tracheobronchopathia osteochondroplastica. Electronically signed by: Vinnie Pacheco M.D. 04/13/2017 4:[address] abnormality. Impression Assessment and Plan Lula is a 71 yo female with history of HTN and otherwise relatively benign medical history who presented yesterday for weakness of upper and lower extremity that lasted about 2-3 hours before improvement with complete improvement this morning. Imaging shows a 9 mm acute infarct within the left frontal/parietal periventricular consistent with a stroke. Stroke: Symptoms appear to be resolved, however imaging confirms a stroke. Spoke in depth with patient about her ASCVD risk of 21.9% given her smoking, age , hypertension, and cholesterol and how quitting smoking, starting aspirin, a statin, and BP management can cut her risk down to about a third of that. She is willing to start aspirin, would like to stop smoking, and is likely to start BP medications. She is hesitant about statins though due to side effects. I explained to her the main side effects we will look for and how we will address them, and how the side effects are outweighed by decreased risk for stroke and cardiac events. I think she will be willing to start therapy with a close PCM following. Plan: Start Aspirin 81mg PO daily. Begin outpatient smoking cessation work, BP management and statin therapy. Outpatient Echo for Afib evaluation. Neck lesion: There was a focal mixed signal lesion measuring 2.5 x 2.3 x 2.9 cm within the left lateral neck adjacent to the left carotid bulb on neck MRA, followed with neck CT showin. Hypervascular mass in the left poststyloid peripharyngeal space splaying the left carotid bifurcation. 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 Differential considerations include schwannoma or neurofibroma, which are considered less likely. 2. Lucent lesion in the right maxilla associated with the posterior aspect of the third right maxillary molar may represent a periapical cyst or keratocystic odontogenic tumor/odontogenic keratocyst. 3. Multiple small nodules noted along the trachea sparing the posterior membrane. Direct visualization could be considered. Differential considerations include adherent debris, papillomatosis, relapsing polychondritis, or tracheobronchopathia osteochondroplastica. Given her smoking history this is concerning for cancer. Would greatly encourage outpatient monitoring, biopsy, and likely ENT referral. Plan: Refer to ENT outpatient. Close following outpatient. Level of Care Telemetry Advanced Directives Existing Living Will: No Existing Power of Product Distribution Specialist: No
--- NOTE | 2017-04-26 16:56 | Discharge Summary ---
Discharge Summary Date of Service Apr 13, 2017. Discharge Summary Admission Date: Apr 12, 2017 at 19:41 Discharge Date: Apr 13, 2017 Discharge Disposition: Home Principal Diagnosis: Acute ischemic CVA Problems/Secondary Diagnoses: Meningioma Lumbar stenosis Hyperlipidemia Current smoker Tracheal nodules Left carotid body tumor Right odontogenic cyst vs tumor Procedures: Head CT CXR MRI Brain MRA Head and Neck CT soft tissue neck Consultations: Neurology Medication Reconciliation New Medications: Atorvastatin (Atorvastatin Calcium) 40 Mg Tab 40 MG PO DAILY for 30 Days, #30 TABS Aspirin (Aspirin EC Low Dose) 81 Mg Ectab 81 MG PO QAM for 30 Days, #30 TABS Continued Medications: Cholecalciferol (Vitamin D) Unknown Strength Tab 1 CAP PO DAILY Yihlnkeuimg-Drcglinpmpq-Sls C- (Glucosamine Chondroitin) 1 Cap Cap 1 CAP PO DAILY Lutein (Lutein) Unknown Strength Cap 1 CAP PO DAILY Multivitamin (Multivitamin) Tab 1 TAB PO DAILY, TAB Turmeric (Curcuma Longa) (Turmeric) 500 Mg Tab 1000 MG PO DAILY Zinc (Zinc) Unknown Strength Tab 1 TAB PO DAILY Referrals At Discharge Follow up Referrals: Physician Referral - Within a Month with Emerson Keenan D.M.D. Cnc Machinist Referral - Within a Month with Tacho Gregg MD Surgery Referral - Within a Month with Nirmal Lugo M.D. Discharge Exam Feeling well, no events on telemetry. No headache, no palpitations, no CP or SOB , no trouble swallowing. Is able to ambulate without difficulty. Has no residual weakness. Review of Systems: Constitutional: No problem reported Eyes: No problem reported ENT: No problem reported Respiratory: No problem reported Cardiovascular: No problem reported Abdomen: No problem reported Musculoskeletal: + problem reported (chronic LBP) Genitourinary - Female: No problem reported Neurologic: No problem reported Psychiatric: No problem reported Endocrine: No problem reported Hematologic / Lymphatic: No problem reported Integumentary: No problem reported Physical Exam: General Appearance: WD/WN, no apparent distress Eyes: normal inspection, PERRL, EOMI, sclerae normal ENT: hearing grossly normal, pharynx normal Neck: supple, thyroid normal, + pertinent finding (possible palpable left mass around carotid,nontender) Respiratory/Chest: lungs clear, normal breath sounds, no respiratory distress, no accessory muscle use Cardiovascular: regular rate, rhythm, no edema, no gallop, no JVD, no murmur , normal peripheral pulses Abdomen / GI: normal bowel sounds, non tender, soft, no organomegaly, no pulsatile mass Extremities: normal inspection, no calf tenderness, normal capillary refill , no pedal edema, normal range of motion Neurologic/Psychiatric: legal manager II-XII nml as tested, no motor/sensory deficits , alert, normal mood/affect, normal reflexes, oriented x 3 Skin: normal color, warm/dry, no rash Lymphatic: no adenopathy Hospital Course 71 y/o F Hx lumbar stenosis, tobacco use, meningioma. Pt was in her garden when her R upper and lower extremity became acutely weak causing her to lose her balance. She suffered a fall but denies any significant head or back trauma. She sat herself up and realized that her RLE remained weak and she was unable to support her weight. Her symptoms improved on arrival to the ER, however, she continued to exhibit mild weakness, mostly in her RUE. She denies any CP, SOB, palpitations, N/V, ERVIN, visual changes or recent fevers. She follows up with regular MRIs to keep track of her meningioma which has not thus far caused any clinical issues. Acute CVA -confirmed on brain MRI -treated with ASA, statin added on, highly encouraged smoking cessation. Her symptoms and weakness were completely resolved at time of discharge. PT/OT evaluations recommended safe to return home. Pt was recommended to have ECHO but she declined to stay as it would not have been able to be done until the next day. I highly doubt she had a cardioembolic CVA and had no telemetry events like Atrial fibrillation while admitted. Her BP was elevated on admission although there is no evidence of chronicity. Neurology consultation appreciated. She was stable for discharge to home. Incidental finding on imaging of: "1. Hypervascular mass in the left poststyloid peripharyngeal space splaying the left carotid bifurcation. 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 Differential considerations include schwannoma or neurofibroma, which are considered less likely. 2. Lucent lesion in the right maxilla associated with the posterior aspect of the third right maxillary molar may represent a periapical cyst or keratocystic odontogenic tumor/odontogenic keratocyst. 3. Multiple small nodules noted along the trachea sparing the posterior membrane. Direct visualization could be considered. Differential considerations include adherent debris, papillomatosis, relapsing polychondritis, or tracheobronchopathia osteochondroplastica." Discussed findings with ENT director environmental. She should have outpt f/u with Vascular SUrgery and ENT fo rher carotid body tumor, OMFS f/u for odontogenic cyst/mass. Regarding her meningioma, it is reported as stable on imaging and considering the location it is unlikely related to the above. Tobacco use - counseled extensively-she is contemplating this -f/u with PCP if desires pharmacologic therapy for assistance Total Time Spent: Greater than 30 minutes This includes examination of the patient, discharge planning, medication reconciliation, and communication with other providers. Discharge Instructions Please refer to the electronic Patient Visit Report (Discharge Instructions) for additional information. Follow-Up PCP within 1-2 weeks Vascular Surgery within 1 month Pulmonology within 1 month OMFS within 1 month Additional Copies To Edelmira Sim D.O.
== END 2017-04-13 18:34 | disposition home or self-care (01) ==
LOC: EDBD 18:01 → C.EDC 18:02 → C.MED 19:41 → ENRESERV 20:25
PROVIDERS: ADMIT Internal Medicine; ATTEND Family Medicine
DX: I63.9 Cerebral infarction, unspecified (principal); D32.9 Benign neoplasm of meninges, unspecified; M48.061 Spinal stenosis, lumbar region without neurogenic claudication; E78.5 Hyperlipidemia, unspecified; F17.200 Nicotine dependence, unspecified, uncomplicated; D38.1 Neoplasm of uncertain behavior of trachea, bronchus and lung; D44.6 Neoplasm of uncertain behavior of carotid body; Z91.81 History of falling; I10 Essential (primary) hypertension; Z88.0 Allergy status to penicillin; Z79.899 Other long term (current) drug therapy; Z79.82 Long term (current) use of aspirin; Z82.3 Family history of stroke

== ENCOUNTER → 2017-05-22 | Outpatient (CLI) | payer OTHER ==
[~2017-05-22] MED LIST: ASPEC81 PO; CHOL100010 PO; GLUC1CAP35 PO; LPT40 PO; LUTE6CAP PO; MULT-506 PO; TURM500T PO; ZINC25TA PO
--- NOTE | 2017-05-22 12:54 | DIAGNOSTIC IMAGING REPORT ---
RIGHT HIP ULTRASONOGRAPHY CLINICAL HISTORY: Right hip pain. Suspected trochanteric bursitis. COMPARISON STUDY: 11/25/2011 FINDINGS: There is a fluid collection within the proximal lateral thigh measuring 6.5 x 4.4 x 1.5 cm. This contains a few septations. It is not possible on ultrasound to determine with this communicates with the joint or bursa. IMPRESSION: 6.5 x 4.4 x 1.5 cm fluid collection with the proximal lateral thigh. Electronically signed by: Gabe Silverman M.D. 05/22/2017 12:53 PM Dictated Date/Time: 05/22/2017 12:51 PM
== END | disposition home or self-care (01) ==
LOC: C.ULTR 12:04
PROVIDERS: ATTEND Family Medicine
DX: M70.61 Trochanteric bursitis, right hip (principal)